=== PATIENT | female | born 1990 | race Caucasian/White ===

== ENCOUNTER 2017-07-29 06:50 | Inpatient (IN) | payer OTHER ==
[~2017-07-29] VITALS: Ht 152.4 cm; Wt 77.0 kg
[2017-07-29] MEDS ORDERED: ONDANSETRON 4 MG INJ ONE (07:00)
[2017-07-29] MEDS ORDERED: LACTATED RINGER'S 1,000 ML IV SCH (07:03)
[2017-07-29] MEDS ORDERED: CARBOPROST 250 MCG INJ IM PRN ×2 (07:30→15:00)
[2017-07-29] MEDS ORDERED: METHYLERGONOVINE 0.2 MG INJ IM PRN ×2 (07:30→15:00)
[2017-07-29] MEDS ORDERED: OXYTOCIN 30 UNITS/LR 500 ML IV SCH (07:30)
[2017-07-29] MEDS ORDERED: OXYTOCIN 30 UNITS/LR 500 ML IV PRN ×2 (07:30→15:00)
[2017-07-29] MEDS ORDERED: MISOPROSTOL 200 MCG TAB PR PRN ×2 (07:30→15:00)
[2017-07-29] MEDS ORDERED: CEFAZOLIN 2 GM/50 ML (PMX) 50 ML IV SCH (07:30)
[2017-07-29 07:41] VITALS: Ht 152.4 cm; Wt 77.0 kg
[2017-07-29 07:43] VITALS: BP 107/62; PULSE 75; RESP 20
[2017-07-29 08:06] LABS: BASOPHILS % 0.4 % (0.0-2.0); EOSINOPHILS # 0.1 10^3/ul (0.0-0.5); EOSINOPHILS % 0.8 % (0.0-7.0); HEMATOCRIT 34.5 % (37.0-47.0); HEMOGLOBIN 11.6 g/dl (12.0-16.0); LYMPHOCYTES # 2.4 10^3/ul (0.8-2.9); LYMPHOCYTES % 32.9 % (15.0-51.0); MEAN CORPUSCULAR HEMOGLOBIN 31.4 pg (29.0-33.0); MEAN CORPUSCULAR HGB CONC 33.6 g/dl (32.0-37.0); MEAN CORPUSCULAR VOLUME 93.2 fl (82.0-101.0); MONOCYTE # 0.4 10^3/ul (0.3-0.9); MONOCYTES % 6.2 % (0.0-11.0); NEUTROPHIL # 4.1 10^3/ul (1.6-7.5); NEUTROPHILS % 57.7 % (39.0-77.0); PLATELET COUNT 193 10^3/UL (140-415); RED CELL DISTRIBUTION WIDTH 13.8 % (11.5-14.5); WHITE BLOOD COUNT 7.1 10^3/ul (4.8-10.8)
[2017-07-29] MEDS ORDERED: LACTATED RINGER'S 1,000 ML IV ONE (08:19)
[2017-07-29] MEDS ORDERED: ONDANSETRON 4 MG INJ IV ONE (08:30)
[2017-07-29] MEDS ORDERED: CITRIC ACID/NA CITRATE 30 ML CUP PO ONE (08:30)
[2017-07-29] MEDS ORDERED: FENTAnyl 50 MCG/ML VIAL ONE (08:41)
[2017-07-29] MEDS ORDERED: morphine SULFATE/PF (10 MG/10 ML) INJ ONE (08:41)
[2017-07-29 08:45] LABS: INR 0.93; PROTIME 12.5 Sec (12.2-14.2)
[2017-07-29 08:46] LABS: PARTIAL THROMBOPLASTIN TIME 30.1 Sec (25.0-35.0)
--- NOTE | 2017-07-29 10:09 | RADRPT ---
PROCEDURE: US evaluation of position. CLINICAL INDICATION: Uncertain position. TECHNIQUE: Multiple sonographic images of the gravid uterus were obtained utilizing pollack-scale keegan ging. Sagittal and transverse images were obtained. The images were reviewed on a PACS workstation . The position was determined. COMPARISON: No prior studies are available for comparison. FINDINGS: There is a single live intrauterine . heart rate is 144 beats per minute. Position is breech and placenta is anterior left grade II with no abruption or previa. There is no placenta previa or abruption. IMPRESSION: 1. position is breech. RPTAT: QQ .Víctor Mckeon MD, MD Date Time Electronically viewed and signed by .Víctor Mckeon MD, on 07/29/2017 10:08 .R/
--- NOTE | 2017-07-29 10:29 | HP ---
Date/Time of Note Date/Time of Note DATE: 07/29/17 TIME: 10:22 OB - History Hx of Present Free Text/Dictation This is a 27 years old female EDC August 04, 2017 admitted to the hospital at 39 weeks and 1 day with breech presentation prior to the surgery patient had ultrasound confirming breech presentation, he has been counseled regarding the complication of the surgery including but not limited to bowel and bladder injury infection wound hematoma she is willing to go ahead with the procedure Chief Complaint: 39 weeks 1 day breech presentation Estimated Due Date: Aug 04, 2017 : 1 Para: 0 Care: Good Care Ultrasounds: Normal mid trimester US Obstetrical Complications: None Medical Complications: None Past Family/Social History * Past Medical, Surgical, Family and Obstetric Histories reviewed from chart. Rubella: immune RPR/VDRL: Negative GBS Status: Negative HBsAG: Negative OB Admission Exam Vital Signs Vital Signs Vital Signs Date Time Temp Pulse Resp B/P Pulse Ox O2 Delivery O2 Flow Rate FiO2 07/29/17 07:43 97.8 75 20 107/62 Physical Exam HEENT: WNL Heart: Rhythm Normal Lungs: Clear, Equal Abdomen: WNL Extremities: Normal Reflexes: Normal Cervical Dilatation: None Station: Other (Previous presentation) Heart Rate: 130's Accelerations: Accelerations Present Decelerations: No Decelerations Varibility: Moderate Last 72 hours Lab Results CBC & BMP 07/29/17 07:30 OB Assessment/Plan Reason for admission: other ( 39 weeks 1 day, breech presentation) Other plan: 27 years old female EDC 08/04/2017 39 weeks and 1 day breech presentation being prepared to undergo primary complication of the surgery including bowel bladder injury infection hemorrhage wound hematoma has been discussed with the patient she would like to proceed with the procedure ALCON FARMER MD Jul 29, 2017 10:29
[2017-07-29] MEDS ORDERED: METOCLOPRAMIDE 10 MG INJ ONE (10:42)
[2017-07-29] MEDS ORDERED: morphine 4 MG/ML VIAL IV PRN (12:00)
[2017-07-29] MEDS ORDERED: morphine 2 MG INJ IV PRN (12:00)
[2017-07-29] MEDS ORDERED: DIPHENHYDRAMINE 50 MG INJ IV PRN (12:00)
[2017-07-29] MEDS ORDERED: NALOXONE (0.4 MG/ML) INJ IV PRN (12:00)
[2017-07-29] MEDS ORDERED: ONDANSETRON 4 MG INJ IV PRN (12:00)
[2017-07-29] MEDS ORDERED: TRIMETHOBENZAMIDE 100 MG/ML VIAL IM PRN (12:00)
[2017-07-29] MEDS ORDERED: NALBUPHINE HCL (10 MG/1 ML) INJ IV PRN (12:00)
--- NOTE | 2017-07-29 12:12 | OPR ---
Operative Report Planned Procedure Free Text/Dictation 27 years old 39 weeks and 1 day with breech presentation confirmed with ultrasound prior to resection Procedure date Jul 29, 2017 Procedure(s) Primary for breech presentation Performed by see signature line Assisting provider: SOLANGE BERNAL MD Anesthesiologist: LEONA MAX MD Pre-procedure diagnosis 39 weeks 1 day with breech presentation Anesthesia Type: spinal Procedure Description Under satisfactory [] anesthesia, the patient was prepped and draped and placed in a supine position, tilted to the left. Pfannenstiel incision was made, carried through the subcutaneous tissue. Bleeders brought under control with electrocautery. Fascia incised to the length of the incision. Rectus muscles from the fascia, divided midline. Peritoneum exposed, entered through a transverse incision. Exploration of abdomen revealed gravid uterus. At term normal-appearing tubes and ovaries bladder flap was developed. Transverse incision was made in the lower segment of the uterus. Amniotic sac ruptured. Clear [] amniotic fluid noted. Live baby girl was delivered from [place] breech presentation with assisted breech extraction posterior shoulder delivered first followed with the delivery of the anterior shoulder head delivered with Mauriceau maneuver nasal oropharyngeal suction was performed. The baby was handed to the team for immediate attention. Patient received 20 units of Pitocin placenta delivered manually intact. Uterine cavity was cleaned with wet sponge and drainage established. Uterus closed in 2 layers using [Monocryl #1] in continuous fashion. Peritoneal cavity irrigated with warm saline. Sponge, needle and instrument count reported to be correct. Abdominal peritoneum closed with 0 chromic catgut continuously. Rectus muscle approximated with [0 chromic catgut]. Fascia closed with [#1 PDS], subcutaneous tissue approximated with several interrupted 2-0 chromic catgut skin closed with N sorb. Estimated blood loss [600]mL. Urine bag contained 200 []mL of clear urine patient tolerated procedure well transferred to recovery room in good condition. Post-Procedure Findings: Live Baby girl 8 and 9 Estimated blood loss: other (600 cc) Specimen(s): no Grafts/Implants: no Complication(s): no Physician Certification I, the undersigned physician, hereby certify that I have discussed the procedure described in this consent form with this patient (or the patient's legal entry level account representative), including: * The risk and benefits of the procedure; * Any adverse reactions that may reasonably be expected to occur; * Any alternative efficacious methods of treatment which may be medically viable ; * The potential problems that may occur during recuperation; * Potential for blood transfusion and associated risks/benefits; and * Any research or economic interest I may have regarding this treatment. I further certify that the patient/legally responsible person was encouraged to ask question and that all questions were answered. ALCON FARMER MD Jul 29, 2017 12:10
[2017-07-29 15:00] VITALS: BP 112/66; PULSE 58; RESP 18
[2017-07-29] MEDS ORDERED: LANOLIN 7 GM TUBE TOP PRN (15:00)
[2017-07-29] MEDS ORDERED: CEFAZOLIN 1 GM/50 ML (PMX) 50 ML IVPB SCH (15:00)
[2017-07-29] MEDS ORDERED: OXYCODONE/ACETAMINOPHEN (5/325) TAB PO PRN ×2 (15:00)
[2017-07-29] MEDS ORDERED: HYDROCODONE/APAP (5/325) TAB PO PRN (15:00)
[2017-07-29 15:31] VITALS: BP 107/71; PULSE 55; RESP 18
[2017-07-29] MEDS: OXYTOCIN 30 UNITS/LR 500 ML IV SCH ×2 (15:47→20:49)
[2017-07-29 16:30] VITALS: BP 114/65; PULSE 75; RESP 18
[2017-07-29 20:00] VITALS: BP 111/63; PULSE 68; RESP 20
[2017-07-29] MEDS: SENNA/DOCUSATE NA (8.6MG/50MG) TAB PO SCH (20:50)
[2017-07-30] MEDS: KETOROLAC 30 MG INJ IV PRN ×2 (00:07→10:30)
[2017-07-30 00:45] VITALS: BP 107/52; PULSE 78; RESP 20
[2017-07-30] MEDS: OXYTOCIN 30 UNITS/LR 500 ML IV SCH ×7 (01:28→22:55)
[2017-07-30 04:54] VITALS: BP 99/53; PULSE 70; RESP 18
[2017-07-30] MEDS: LACTATED RINGER'S 1,000 ML IV SCH ×2 (07:24→13:38)
[2017-07-30 07:45] LABS: BASOPHILS % 0.3 % (0.0-2.0); EOSINOPHILS # 0.1 10^3/ul (0.0-0.5); EOSINOPHILS % 0.5 % (0.0-7.0); HEMATOCRIT 32.7 % (37.0-47.0); HEMOGLOBIN 10.8 g/dl (12.0-16.0); LYMPHOCYTES # 1.8 10^3/ul (0.8-2.9); LYMPHOCYTES % 18.6 % (15.0-51.0); MEAN CORPUSCULAR HEMOGLOBIN 30.6 pg (29.0-33.0); MEAN CORPUSCULAR VOLUME 92.6 fl (82.0-101.0); MEAN PLATELET VOLUME 11.8 fl (7.4-10.4); MONOCYTE # 0.6 10^3/ul (0.3-0.9); MONOCYTES % 5.9 % (0.0-11.0); NEUTROPHIL # 7.1 10^3/ul (1.6-7.5); NEUTROPHILS % 73.9 % (39.0-77.0); PLATELET COUNT 164 10^3/UL (140-415); RED BLOOD COUNT 3.53 10^6/ul (4.20-5.40); WHITE BLOOD COUNT 9.6 10^3/ul (4.8-10.8)
[2017-07-30 08:20] VITALS: BP 106/56; PULSE 77; RESP 20
[2017-07-30] MEDS: SENNA/DOCUSATE NA (8.6MG/50MG) TAB PO SCH ×2 (10:30→21:06)
--- NOTE | 2017-07-30 11:09 | QN ---
Documentation Comment Post day 1 Afebrile Vital signs are stable Abdomen soft mildly distended incision dry bowel sounds present able to pass flatus Lochia moderate Treatment is normal Ambulation encouraged ALCON FARMER MD Jul 30, 2017 11:09
[2017-07-30 16:00] VITALS: BP 102/67; PULSE 68; RESP 19
[2017-07-30 17:00] VITALS: BP 120/77; PULSE 71; RESP 19
[2017-07-30] MEDS: IBUPROFEN 600 MG TAB PO SCH (17:37)
[2017-07-30 20:30] VITALS: BP 116/71; PULSE 89; RESP 16
[2017-07-31] MEDS: IBUPROFEN 600 MG TAB PO SCH ×5 (00:03→23:50)
[2017-07-31] MEDS: OXYTOCIN 30 UNITS/LR 500 ML IV SCH (02:55)
[2017-07-31 04:45] VITALS: BP 105/56; PULSE 71; RESP 17
[2017-07-31 07:50] VITALS: BP 94/53; PULSE 66; RESP 18
[2017-07-31] MEDS: SENNA/DOCUSATE NA (8.6MG/50MG) TAB PO SCH ×2 (09:00→21:05)
--- NOTE | 2017-07-31 09:58 | QN ---
Documentation Comment Post day 2 Afebrile Vital signs are stable Abdomen soft bowel sounds present,, patient able to pass flatus, no bowel movement Extremities normal Ambulation encouraged ALCON FARMER MD Jul 31, 2017 09:58
[2017-07-31] MEDS: NA PHOSPHATE/BIPHOS 133 ML ENEMA PR ONE (10:00)
[2017-07-31] MEDS: HYDROCODONE/APAP (5/325) TAB PO PRN ×3 (12:56→23:50)
[2017-07-31 16:00] VITALS: BP 107/55; PULSE 77; RESP 18
[2017-07-31 20:00] VITALS: BP 100/57; PULSE 70; RESP 20
[2017-07-31] MEDS ORDERED: NA PHOSPHATE/BIPHOS 133 ML ENEMA PR SCH (21:00)
[2017-08-01] MEDS: IBUPROFEN 600 MG TAB PO SCH ×2 (05:24→11:04)
[2017-08-01 07:40] VITALS: BP 104/55; PULSE 77; RESP 16
[2017-08-01] MEDS: SENNA/DOCUSATE NA (8.6MG/50MG) TAB PO SCH (08:45)
[2017-08-01] MEDS ORDERED: DIPHTH/TET/ACEL PERTUSS (ADULT) 0.5 ML VIAL IM* ONE (09:00)
--- NOTE | 2017-08-01 12:22 | QN ---
Documentation Comment POD#1 is stable afebrile No VB +BM +voids VS stable Gen NAD Abd soft NT ND Incision intact Genitalia No blood at perinium --->Close Observation --->Ambulation --->discharge home JORDON FITZGERALD M.D. Aug 01, 2017 12:22
--- NOTE | 2017-08-01 12:28 | DS ---
Date/Time of Note Date/Time of Note DATE: 08/01/17 TIME: 12:27 Discharge Summary Admission/Discharge Info Admit Date/Time Jul 29, 2017 at 06:50 Discharge Date/Time 08/01/17 Discharge Diagnosis Patient Condition: Good Procedures c/section Hospital Course uneventful Primary Care Provider Care Physician JORDON Portillo M.D. Aug 01, 2017 12:28
== END 2017-08-01 15:20 | disposition home or self-care (01) | DRG 766 ==
LOC: L-D 06:50 → PP1 14:11
PROVIDERS: ADMIT Obstetrics & Gynecology; ATTEND Obstetrics & Gynecology
PROC: 10D00Z1 Extraction of Products of Conception, Low, Open Approach (ICD-10-PCS; principal; 2017-07-29 09:00)
DX: O32.8XX0 Maternal care for other malpresentation of fetus, not applicable or unspecified (principal); Z37.0 Single live birth; Z3A.39 39 weeks gestation of pregnancy
CPT/HCPCS: 76815; 85025; 85610; 85730; 86592; 86850; 86900; 86901; 87340; 90715; 94760; 99464; J0690; J1885; J2274; J2405; J2590; J2765; J3010; J7120